=== PATIENT | female | born 1990 | race Caucasian/White ===

== ENCOUNTER 2022-08-21 15:47 | Emergency (ER) | payer OTHER, SELFPAY ==
--- NOTE | ~2022-08-21 | US_ITS ---
EXAMINATION: US OB <=14 wk fetus w TV INDICATION: 5 weeks gest, beta 11K, L sided ABD pain TECHNIQUE: Sonography of the pelvis was performed by transabdominal and transvaginal techniques. COMPARISON: None. RESULT: Uterus: Orientation: Anteverted. 8.8 x 4.2 x 4.3 cm. Myometrium: homogeneous echogenicity. Gestation: - Intrauterine gestational sac: Single present. - Mean Sac Diameter: 1.04 cm, corresponding gestational age 5 week 5 days. - Yolk sac: 0.24 cm . - Embryo: Not seen. -Subgestational hematoma: Absent . Right ovary: 2.7 x 2.7 x 1.2 cm. Normal sonographic appearance with physiologic follicles. . . Left ovary: 4.4 x 4.4 x 2.8 cm. 3.1 cm thin-walled anechoic cyst in the left ovary with an elongate d margin. . Pelvis free fluid: Moderate volume free pelvic fluid, more on the left adnexa, with layering debris. IMPRESSION: Single, intrauterine gestation, of uncertain viability as the pole is not yet identified, likel y due to early gestational age. Estimated Gestational Age: 5 weeks, 5 days by crown rump length. SIMÓN by ultrasound 04/18/2023. Moderate volume complex free pelvic fluid may represent hemorrhage from a ruptured left ovarian cyst. Reviewed, dictated and finalized at location K. IMPRESSION: Single, intrauterine gestation, of uncertain viability as the pole is not yet identified, likely due to early gestational age. Estimated Gestational Age: 5 weeks, 5 days by crown rump length. SIMÓN by ultras ound 04/18/2023. Moderate volume complex free pelvic fluid may represent hemorrhage from a ruptu red left ovarian cyst.
[2022-08-21 15:49] VITALS: BP 133/65; PULSE 92; RESP 20; TEMP 36.8; O2SAT 100
[2022-08-21 16:10] LABS: Basophils Absolute Auto 0.1 K/mm3 (0.0-0.1); Basophils Percent Auto 0.7 % (0.2-1.2); Eosinophils Percent Auto 0.4 % (0-4.4); Hematocrit 37.7 % (37.0-47.0); Immature Granulocyte Absolute 0.01 K/mm3 (0.00-0.031); Immature Granulocyte Percent A 0.1 % (0-0.5); Lymphocytes Absolute Auto 2.16 K/mm3 (0.9-3.2); Lymphocytes Percent Auto 29.7 % (18.3-44.2); Mean Corpuscular HGB Conc 34.5 g/dl (32-36); Mean Corpuscular Hemoglobin 29.6 pg (26-34); Mean Corpuscular Volume 85.9 fl (80-100); Mean Platelet Volume 10.3 fl (7.4-10.4); Monocytes Absolute Auto 0.5 K/mm3 (0.1-0.6); Monocytes Percent Auto 6.6 % (2.6-8.5); Neutrophils Absolute Auto 4.5 K/mm3 (1.3-6.7); Neutrophils Percent Auto 62.5 % (45.5-73.1); Platelet Count Result 290 k/mm3 (150-375); Red Blood Count 4.39 M/mm3 (4.2-5.4); Red Cell Distribution Width 12.3 % (11.5-14.5); White Blood Count 7.3 K/mm3 (4.5-10.0)
[2022-08-21 17:43] VITALS: BP 132/65; PULSE 84; RESP 16; TEMP 37.2; O2SAT 100
--- NOTE | 2022-08-21 18:20 | ED.PREGNANCY ---
HPI - General Chief complaint: Vaginal Bleeding <NGOC Gillis Last Filed: 08/22/22 02:29> Stated complaint: 5 weeks , cramping + L sided pain <NGOC Gillis Last Filed: 08/22/22 02:29> Time Seen by Provider: 08/21/22 17:39 <NGOC Gillis Last Filed: 08/22/22 02:29> Source: patient <NGOC Gillis Last Filed: 08/22/22 02:29> Mode of arrival: ambulatory <NGOC Gillis Last Filed: 08/22/22 02:29> Limitations: no limitations <NGOC Gillis Last Filed: 08/22/22 02:29> History of Present Illness HPI Narrative: Patient is a 32 y/o female who presents to the ED with c/o abdominal cramping. Patient is and currently approx 5 weeks gestation by [facility] Jul 14, 2022. Patient reports having diffuse abdominal cramping over the last 1 week. Today, the pain became more severe and more localized to her left lower quadrant. She called the [facility] and was referred to the ED for further evaluation. Patient will be seeing Rebecca Bauer, the fuse cup expander. Patient denies any vaginal bleeding, leakage of fluid or tissue, fevers, nausea, vomiting, back pain, urinary symptoms. <NGOC Gillis Last Filed: 08/22/22 02:29> Related Data Allergies/Adverse reactions: Allergies Allergy/AdvReac Type Severity Reaction Status Date / Time Penicillins Allergy Unknown RASH Verified 08/21/22 15:52 <NGOC Gillis Last Filed: 08/22/22 02:29> Review of Systems Review of Systems: CONSTITUTIONAL: Denies fever, chills, or sweats. CARDIOVASCULAR: Denies chest pain. RESPIRATORY: Denies dyspnea. GASTROINTESTINAL: See HPI. GENITOURINARY: See HPI. SKIN: Denies rash or itching. MUSCULOSKELETAL: Denies back pain. <Yelitza Olivares PA-C - Last Filed: 08/22/22 02:29> All systems reviewed & are unremarkable except as noted in HPI and below <Yelitza Olivares PA-C - Last Filed: 08/22/22 02:29> PMFSH Past Medical History Medical History: Medical History (Updated 08/22/22 @ 00:01 by Jerald Duarte) Anxiety <Yelitza Olivares PA-C - Last Filed: 08/22/22 02:29> Surgical History Surgical History: Surgical History (Updated 08/21/22 @ 18:21 by Yelitza Olivares PA-C) No pertinent past surgical history <Yelitza Olivares PA-C - Last Filed: 08/22/22 02:29> Social History Social History: Social History (Updated 08/21/22 @ 18:22 by Yelitza Olivares PA-C) Smoking status: Never smoker <Yelitza Olivares PA-C - Last Filed: 08/22/22 02:29> Exam Narrative: GENERAL: Well appearing, well-nourished, non-toxic, in no acute distress. HEAD: Normocephalic, atraumatic. NECK: Supple. No adenopathy, no masses. RESPIRATORY: Airway patent, respirations nonlabored. Clear to auscultation bilaterally, no rales, rhonchi, wheezing. CARDIOVASCULAR: Regular rate and rhythm without murmurs, rubs, or gallops. Peripheral pulses 2+ and equal bilaterally. ABDOMINAL: Soft, mild tenderness throughout left lower quadrant, left pelvic region, no rebound. Nondistended, no hepatosplenomegaly. Normoactive BS. No CVA tenderness. MUSCULOSKELETAL: Moves all extremities. Strength/ROM intact without gross deformities. SKIN: Warm, dry, normal color. No rashes. NEURO: A&O X3. Speech clear. Cranial nerves II-XII grossly intact. Steady gait. No ataxic movements. PSYCHIATRIC: Appropriate mood and affect. Normal interaction. <Yelitza Olivares PA-C - Last Filed: 08/22/22 02:29> Course TRUCK SALES REPRESENTATIVE/PA Physician Supervision This is a was performed by both a physician and an APC. I performed all aspects of the MDM as documented w/ the following additions: This is woman presented with abdominal cramping. Transvaginal ultrasound showed a 5 week fetus. No bleeding no discharge. Case was discussed with OBGYN and she is safe for outpatient follow-up.All questions a
[2022-08-21 18:40] VITALS: BP 121/78; PULSE 81; RESP 16; O2SAT 99
[2022-08-21 18:55] LABS: Appearance Urine Clear (Clear); Bilirubin Urine Negative (Negative); Blood Urine Negative (Negative); Color Urine Yellow (Yellow); Glucose Urine UA Negative (Negative); Ketones Urine Negative (Negative); Leukocyte Esterase Ur Negative LEU/UL (Negative); Nitrate Urine Negative (Negative); Protein Urine Negative (Negative); Specific Grav Ur 1.011 (1.001-1.035); Urobilinogen Urine 0.2 mg/dL (<2.0); pH Urine 6.5 (5.0-9.0)
[2022-08-21 19:14] LABS: Add Urine Microscopic? NO
== END 2022-08-21 19:56 | disposition home or self-care (01) ==
PROVIDERS: Emergency Medicine; Emergency Provider Physician Assistant; PCP Nurse Practitioner Family
DX: O34.81 Maternal care for other abnormalities of pelvic organs, first trimester (principal); N83.202 Unspecified ovarian cyst, left side; R10.32 Left lower quadrant pain; Z3A.01 Less than 8 weeks gestation of pregnancy
CPT/HCPCS: 36415; 76801; 76817; 81003; 84702; 85025; 85461; 86850; 86900; 86901; 99284

== ENCOUNTER 2023-01-28 16:40 | Outpatient (CLI) | payer OTHER, SELFPAY ==
[2023-01-28 17:15] VITALS: BP 113/56; PULSE 77
[2023-01-28 17:30] VITALS: BP 124/69; PULSE 85
[2023-01-28 17:45] VITALS: BP 112/65; PULSE 78
--- NOTE | 2023-01-28 17:49 | PC.NURSE ---
Dr. Seals notified of negative ROM plus. tracing reviewed, discharge order received.
[2023-01-28 17:50] VITALS: BP 113/56; PULSE 77
== END 2023-01-28 17:53 | disposition home or self-care (01) ==
LOC: ANHOBOP 16:45 → ANHOBPP 16:46
PROVIDERS: PCP Nurse Practitioner Family; Visit Provider Obstetrics & Gynecology
DX: O42.90 Premature rupture of membranes, unspecified as to length of time between rupture and onset of labor, unspecified weeks of gestation (principal); Z3A.00 Weeks of gestation of pregnancy not specified
CPT/HCPCS: 59025; 99199

== ENCOUNTER 2023-04-19 07:51 | Outpatient (CLI) | payer OTHER, SELFPAY ==
[2023-04-19 08:18] VITALS: BP 118/77; PULSE 72
[2023-04-19 08:20] LABS: Basophils Percent Auto 0.4 % (0.2-1.2); Eosinophils Absolute Auto 0.1 K/mm3 (0-0.3); Eosinophils Percent Auto 0.6 % (0-4.4); Hematocrit 39.8 % (37.0-47.0); Hemoglobin 13.5 g/dL (12.0-15.0); Immature Granulocyte Absolute 0.03 K/mm3 (0.00-0.031); Immature Granulocyte Percent A 0.3 % (0-0.5); Lymphocytes Absolute Auto 2.35 K/mm3 (0.9-3.2); Lymphocytes Percent Auto 24.4 % (18.3-44.2); Mean Corpuscular HGB Conc 33.9 g/dl (32-36); Mean Corpuscular Hemoglobin 30.3 pg (26-34); Mean Corpuscular Volume 89.2 fl (80-100); Mean Platelet Volume 11.3 fl (7.4-10.4); Monocytes Absolute Auto 0.6 K/mm3 (0.1-0.6); Monocytes Percent Auto 6.2 % (2.6-8.5); Neutrophils Absolute Auto 6.5 K/mm3 (1.3-6.7); Neutrophils Percent Auto 68.1 % (45.5-73.1); Platelet Count Result 262 k/mm3 (150-375); Red Blood Count 4.46 M/mm3 (4.2-5.4); Red Cell Distribution Width 13.1 % (11.5-14.5); White Blood Count 9.6 K/mm3 (4.5-10.0)
[2023-04-19 08:25] LABS: Appearance Urine Clear (Clear); Bilirubin Urine Negative (Negative); Blood Urine Negative (Negative); Color Urine Yellow (Yellow); Glucose Urine UA Negative (Negative); Ketones Urine Negative (Negative); Leukocyte Esterase Ur Negative LEU/UL (NEGATIVE); Nitrate Urine Negative (Negative); Protein Urine Negative (Negative); Specific Grav Ur 1.006 (1.001-1.035); Urobilinogen Urine 0.2 mg/dL (<2.0); pH Urine 6.5 (5.0-9.0)
[2023-04-19 08:30] VITALS: BP 110/64; PULSE 74
[2023-04-19 08:32] LABS: Creatinine Urine 22.5 mg/dL; Total Protein Urine Random 16 mg/dL; Ur Ttl Prot Creatinine Ratio 0.71 mg/mg (0-0.20)
[2023-04-19 08:33] LABS: Alanine Aminotransferase 17 U/L (6-35); Albumin Level 3.7 g/dL (3.5-5.1); Alkaline Phosphatase 160 U/L (38-126); Anion Gap 8 mmol/L (8-16); Aspartate Amino Transferase 24 U/L (14-36); Bilirubin,Total 0.9 mg/dL (0.2-1.3); Blood Urea Nitrogen 10 mg/dL (7-17); Calcium 10.3 mg/dL (8.4-10.2); Carbon Dioxide 23 mmol/L (22-30); Chloride 104 mmol/L (98-107); Estimated Glomerular Filt Rate > 60; Glucose 92 mg/dL (65-110); Potassium 3.7 mmol/L (3.4-5.0); Sodium 135 mmol/L (137-145); Uric Acid 4.7 mg/dL (2.5-7.5)
[2023-04-19 08:34] LABS: Add Urine Microscopic? NO
[2023-04-19 08:45] VITALS: BP 110/69; PULSE 74
[2023-04-19 09:00] VITALS: BP 107/67; PULSE 72
--- NOTE | 2023-04-19 09:05 | PC.NURSE ---
0848- this RN spoke to MD and reported pts arrival to unit. MD made aware of pts complaints of headache, recent blood pressures as well as lab results. Orders received. pt ok to discharge.
[2023-04-19 09:15] VITALS: BP 107/54; PULSE 75
[2023-04-19] MEDS: CAFFEINE 200 MG TABLET PO (09:20)
== END 2023-04-19 09:25 | disposition home or self-care (01) ==
LOC: ANHOBOP 07:55 → ANHOBPP 07:55
PROVIDERS: PCP Nurse Practitioner Family; Visit Provider Obstetrics & Gynecology
DX: O13.9 Gestational [pregnancy-induced] hypertension without significant proteinuria, unspecified trimester (principal); Z3A.00 Weeks of gestation of pregnancy not specified
CPT/HCPCS: 36415; 59025; 80053; 81003; 82570; 84156; 84550; 85025; 87086; 99199; A9270

== ENCOUNTER 2023-04-23 05:03 | Inpatient (IN) | payer OTHER, SELFPAY ==
[2023-04-23] VITALS (205 sets, daily range): BP systolic 92–151; BP diastolic 53–111; PULSE 70–139; TEMP 36.7–38.9; O2SAT 82–100; BMI 31.2
--- NOTE | 2023-04-23 05:03 | LDADM ---
This patient, Brooklyn Benitez, was admitted to Labor/Delivery/Recovery 104 on 04/23/23 at 05:03. Plans for labor, pain management and were discussed with patient. Patient/family oriented to hospital policies and general routines including ID bracelet, bed and alarms, visiting hours, pain management, procedures, bathroom and other care routines, personal items, smoking policy, room service/diet and guest tray routines, infant security routines, and visiting hours. Patient/Family are encouraged to report perceived risks to care and to ask questions if they do not understand what they are told or what they should do. See OBIX for further documentation.
[2023-04-23 06:11] LABS: Basophils Percent Auto 0.4 % (0.2-1.2); Eosinophils Absolute Auto 0.1 K/mm3 (0-0.3); Eosinophils Percent Auto 0.5 % (0-4.4); Hematocrit 39.5 % (37.0-47.0); Hemoglobin 13.3 g/dL (12.0-15.0); Immature Granulocyte Absolute 0.04 K/mm3 (0.00-0.031); Immature Granulocyte Percent A 0.4 % (0-0.5); Lymphocytes Absolute Auto 2.43 K/mm3 (0.9-3.2); Lymphocytes Percent Auto 22.8 % (18.3-44.2); Mean Corpuscular HGB Conc 33.7 g/dl (32-36); Mean Platelet Volume 11.4 fl (7.4-10.4); Monocytes Absolute Auto 0.8 K/mm3 (0.1-0.6); Monocytes Percent Auto 7.1 % (2.6-8.5); Neutrophils Absolute Auto 7.3 K/mm3 (1.3-6.7); Neutrophils Percent Auto 68.8 % (45.5-73.1); Platelet Count Result 253 k/mm3 (150-375); Red Blood Count 4.44 M/mm3 (4.2-5.4); Red Cell Distribution Width 13.2 % (11.5-14.5); White Blood Count 10.7 K/mm3 (4.5-10.0)
[2023-04-23 06:23] LABS: Alanine Aminotransferase 18 U/L (6-35); Albumin Level 3.7 g/dL (3.5-5.1); Alkaline Phosphatase 160 U/L (38-126); Anion Gap 7 mmol/L (8-16); Aspartate Amino Transferase 24 U/L (14-36); Bilirubin,Total 0.7 mg/dL (0.2-1.3); Blood Urea Nitrogen 9 mg/dL (7-17); Calcium 10.2 mg/dL (8.4-10.2); Carbon Dioxide 21 mmol/L (22-30); Chloride 107 mmol/L (98-107); Estimated Glomerular Filt Rate > 60; Glucose 93 mg/dL (65-110); Potassium 3.8 mmol/L (3.4-5.0); Sodium 135 mmol/L (137-145); Uric Acid 4.5 mg/dL (2.5-7.5)
--- NOTE | 2023-04-23 07:17 | WPDOBADMIT ---
Obstetrics - Admit Note Admission Note: record reviewed. No pertinent additions to the history and/or any subsequent changes in the physical findings that are not consistent with the expected course of the were found. Additions to the history and/or subsequent changes in the physical findings follow. SROM at home, meconium fluid,, anticipate vaginal delivery
[2023-04-23] MEDS: OXYTOCIN 30 UNITS/NS 500 ML 30 UNITS/500 ML BAG IV CONT (09:30)
[2023-04-23] MEDS: LACTATED RINGERS 1,000 ML 125 ML IV CONT ×4 (09:30→19:45)
--- NOTE | 2023-04-23 11:01 | WPDANESEPP ---
Anes - Eval Pre Procedure Procedure: Labor Epidural Date/Time: 04/23/23 11:01 Surgeon: Dell Preop Diagnosis: Labor Pain Pre Op Diagnosis: Leaking Fluid Patient Data Age: 32 Gender: F Height: Weight: Last Vital Signs Temp 37.2 C 04/23/23 08:30 Pulse 87 04/23/23 11:00 BP 122/81 04/23/23 11:00 O2 Del Method Room Air 04/23/23 05:47 Allergies Allergy/AdvReac Type Severity Reaction Status Date / Time Penicillins Allergy Unknown RASH Verified 03/24/23 14:30 Home Medications Medication Instructions Recorded Confirmed Type ferrous sulfate 325 mg (65 mg 325 mg PO DAILY 03/24/23 04/23/23 History iron) tablet,delayed release prenat.vits,marcial,yee-fese-atveu 1 tablet PO 03/24/23 History Laboratory Tests 04/23/23 05:45 WBC 10.7 H K/mm3 (4.5-10.0) RBC 4.44 M/mm3 (4.2-5.4) Hgb 13.3 g/dL (12.0-15.0) Hct 39.5 % (37.0-47.0) MCV 89.0 fl (80-100) MCH 30.0 pg (26-34) MCHC 33.7 g/dl (32-36) RDW 13.2 % (11.5-14.5) Plt Count 253 k/mm3 (150-375) MPV 11.4 H fl (7.4-10.4) Immature Gran % (Auto) 0.4 % (0-0.5) Neut % (Auto) 68.8 % (45.5-73.1) Lymph % (Auto) 22.8 % (18.3-44.2) Kemper % (Auto) 7.1 % (2.6-8.5) Eos % (Auto) 0.5 % (0-4.4) Baso % (Auto) 0.4 % (0.2-1.2) Lymph # (Auto) 2.43 K/mm3 (0.9-3.2) Kemper # (Auto) 0.8 H K/mm3 (0.1-0.6) Eos # (Auto) 0.1 K/mm3 (0-0.3) Baso # (Auto) 0.0 K/mm3 (0.0-0.1) Abs Immat Gran (auto) 0.04 H K/mm3 (0.00-0.031) Absolute Neuts (auto) 7.3 H K/mm3 (1.3-6.7) Absolute Nucleated RBC 0.0 K/mm3 (0.0-0.012) Nucleated RBC % 0.0 % (0.0-0.2) Sodium 135 L mmol/L (137-145) Potassium 3.8 mmol/L (3.4-5.0) Chloride 107 mmol/L (98-107) Carbon Dioxide 21 L mmol/L (22-30) Anion Gap 7 L mmol/L (8-16) BUN 9 mg/dL (7-17) Creatinine 0.40 L mg/dL (0.7-1.0) Estim Creat Clear Calc Not Reportable Estimated GFR > 60 (59 - ) Glucose 93 mg/dL (65-110) Uric Acid 4.5 mg/dL (2.5-7.5) Calcium 10.2 mg/dL (8.4-10.2) Total Bilirubin 0.7 mg/dL (0.2-1.3) AST 24 U/L (14-36) ALT 18 U/L (6-35) Alkaline Phosphatase 160 H U/L (38-126) Total Protein 7.0 g/dL (6.3-8.2) Albumin 3.7 g/dL (3.5-5.1) RPR Pending Blood Type O Positive Antibody Screen Negative : gestational age (SIMÓN 04/24/23) HCG: negative Patient hx anesthesia problems: none Family hx anesthesia problems: none Results Review: All pre-operative results and documents have been reviewed as part of the pre-operative evaluation. [facility] Past Medical History Medical History Anxiety Surgical History Surgical History No pertinent past surgical history Social History Social History Smoking status: Never smoker Second hand tobacco smoke exposure: No Substance use: never Lack of Transportation: No Lack of Food: Never True Current Housing: I Have Housing Concerned About Future Housing: No Difficulty Paying Gas/Electric Bills: No Difficulty Paying for Meds: No Currently Unemployed: No Education: Bachelor's Degree Difficulty w/ Childcare or Family Care: No Spiritual care concerns: No Exam Day of Procedure 04/23/23 11:01 Patient weight: normal Heart: regular rate and rhythm Lungs: normal air movement Airway: Mallampati scale class II Neurological: alert and oriented
[2023-04-23 14:39] LABS: Rapid Plasma Reagin Non-Reactive (NonReactive)
[2023-04-23] MEDS: miSOPROStol 200 MCG TABLET 1000 MCG (21:41)
--- NOTE | 2023-04-23 21:53 | PM.OBPRVD ---
OB - Vaginal Delivery Note Procedure Delivery date: 04/23/23 Delivery augmentation: Pitocin Delivery monitor: External FHT and External Uterine Route of delivery: Laceration Description: Perineal - 2nd Degree Delivery repair: vicryl Specimen: Yes Quantitative Blood Loss (ml): 821 Anesthesia type: Epidural Disposition: Floor Complications: Other complications [place] Baby Date of : 04/23/23 Time of : 21:27 Weeks of gestation at delivery: 39 gender: Male Weight (pounds): 8 Weight (ounces): 10 presentation: vertex position: Right Occiput Anterior Placenta delivery description: Spontaneous Cord Vessel Description: 3 Vessels and Clamped/Cut (handed to rn, traffic agent at ) score one minute: 3 score five minutes: 8 Narrative: head slow to deliver, anterior arm and baby easily delivered, clot removal from uterus, blood loss mainly from perineal repair. mother and baby in stable condition
[2023-04-23] MEDS: OXYTOCIN 30 UNITS/NS 500 ML 30 UNITS/500 ML BAG 125 UNITS IV CONT (21:59)
[2023-04-24] VITALS (31 sets, daily range): BP systolic 104–135; BP diastolic 61–97; PULSE 83–117; RESP 16–18; TEMP 36.2–38.9; O2SAT 90–100
[2023-04-24] MEDS: ACETAMINOPHEN 500 MG TABLET 1000 MG PO (00:01)
[2023-04-24] MEDS: GENTAMICIN SULFATE INJ 375 MG in DEXTROSE 5% 100 ML 100 MG IVPB (01:18)
[2023-04-24] MEDS: BENZOCAINE 20% AER SPR (*SP) 56 GM CAN 1 SPRAY TOPICAL (02:00)
[2023-04-24] MEDS: WITCH HAZEL 40 PADS 1 PAD TOPICAL (02:00)
--- NOTE | 2023-04-24 02:27 | OBPPTRN ---
Patient transferred to post room #276 via wheelchair. Support person present. Oriented to unit, room, information board, rooming in, admission packet and security measures. Patient verbalizes understanding.
[2023-04-24] MEDS: IBUPROFEN 600 MG TABLET PO ×2 (04:25→15:58)
[2023-04-24] MEDS: CLINDAMYCIN 900 MG/D5W 50 ML 900 MG/50 ML PIGGYBACK 50 MG IVPB ×3 (04:42→22:30)
[2023-04-24 05:46] LABS: Hematocrit 30.5 % (37.0-47.0); Hemoglobin 10.2 g/dL (12.0-15.0)
[2023-04-24 06:00] LABS: Estimated CRCL calculation 94 ml/min; Estimated Glomerular Filt Rate > 60
--- NOTE | 2023-04-24 08:12 | PM.OBPNVD ---
OB - PN: Subj Subjective Date/time seen: 04/24/23 08:12 Patient comments: no complaints, pain well controlled, incisional pain, tolerating diet and flatus present OB - PN: Obj Data Labs 04/24/23 04:33 04/24/23 04:33 Labs: Laboratory Results - last 24 hr 04/23/23 04/24/23 05:45 04:33 Hgb 10.2 L D Hct 30.5 L Creatinine 0.70 Estim Creat Clear Calc 94 Estimated GFR > 60 RPR Non-reactive OB - PN A/P Plan day: 1 Plan: routine care Comments: No problems, routine care Time Spent With Patient Time: Total time spent is greater than 50% in coordination of care (as documented) at patient's floor/unit and/or counseling patient: Exam Const: General: comfortable, no acute distress and alert Resp: Effort & Inspection: normal respiratory effort Auscultation: no crackles, no rales and no rhonchi Cardio: Rate: regular rate Heart sounds: no click, no murmurs and no rubs GI: Inspection: non-distended GI Palp: No Tenderness to palpation present (GI) Auscultation: normal bowel sounds Other: Incision - CDI Extrem: General: normal to inspection, no pedal edema and no calf tenderness
[2023-04-24] MEDS: MULTIVIT/MIN/PREN/FOL AC/IRON TABLET 1 TAB PO (08:18)
[2023-04-24] MEDS: ACETAMINOPHEN 325 MG TABLET 650 MG PO (08:18)
--- NOTE | 2023-04-24 10:35 | WPDANLDPN2 ---
Anes-Prog Note L&D Date/Time: 04/24/23 10:35 Comfortable throughout: labor and delivery Neuraxial method: epidural Epidural/Spinal procedure site: clean & non-tender Neuro status: Neuro function grossly intact. Cardiovascular status: normal Respiratory status: normal Airway patency: baseline Mental status: baseline Post-Op hydration status: normal Vital Signs: Last Vital Signs Temp 36.2 C L 04/24/23 09:25 Pulse 90 04/24/23 09:25 Resp 18 04/24/23 09:25 BP 111/65 04/24/23 09:25 Pulse Ox 98 04/24/23 09:25 O2 Del Method Room Air 04/23/23 05:47 Pain score (VAS): 06/18 I/O: Intake & Output 04/23/23 04/24/23 04/24/23 23:59 07:59 15:59 Intake Total 2500 Output Total 1321 222 Balance 1179 -222 Post-procedural complaints: none Patient feedback: Patient satisfied with anesthetic care.
--- NOTE | 2023-04-24 11:12 | PC.NURSE ---
[id number] Introductions were made, then consulted with patient to assess needs related to . Mother led the conversation with her?plans to feed?her infant and the?experience so far. Mother works well with her with encouragement and education. Encouraged understanding of the benefits of skin to skin (demonstrating unwrapping and placing upright on her chest), stimulating with massage touch, changing positions to encourage wakefulness, how to watch for early feeding cues, responsive feeding, feeding on demand (aiming for 8-12 times in 24 hours, about every 2-3 hours), milk production, building/maintaining a milk supply, duration of feeding, signs of adequate intake/output and how to record on the feeding sheet. Reviewed positioning and ear, shoulder, hip alignment, supporting the breast to facilitate a deep latch, asymmetrical latch (off-center), leading with the chin with a big, open, wide gape and body close to mother. Infant latched optimally to the right,left,then right again breast in cradle position with exception to the last latch practicing cross cradle. Education given to mother of how to visualize suck/swallow ratios and listen for drinking at the breast. Infant was able to maintain latch without discomfort to mother. Nipple care reviewed with optimal latch and good positioning. Reviewed good handwashing when or touching the breast/nipples to prevent infection. Resources used to facilitate learning were used with the mom and baby guide. Mother voiced understanding of skin to skin, stimulating with massage touch, responsive feedings, talking to and touching to encourage if it has been 2 -2.5 hours since the start of the last , to call if does not latch, or if there is discomfort with . Discussed the rational behind offering food to infant often and frequently. Resources provided for inpatient/outpatient with name written on the communication board and the mom/baby guide. Parents voiced understanding of information, demonstrated learning and will call if there is a request for assistance. Reported to the Primary RN.
[2023-04-24 15:04] LABS: Gentamicin Random 1.4 ug/mL (5.0-12.0)
[2023-04-25] MEDS: IBUPROFEN 600 MG TABLET PO (06:30)
[2023-04-25] MEDS: MULTIVIT/MIN/PREN/FOL AC/IRON TABLET 1 TAB PO (06:30)
[2023-04-25 07:30] VITALS: BP 123/75; PULSE 88; RESP 16; TEMP 36.6; O2SAT 100
--- NOTE | 2023-04-25 08:27 | PM.OBPNVD ---
OB - PN: Subj Subjective Date/time seen: 04/25/23 08:27 Interval history: Doing well PPD#2 No fevers or chills Voiding spontaneously Pain well controlled Normal diet OB - PN: Obj Data Labs 04/24/23 04:33 04/24/23 04:33 Labs: Laboratory Results - last 24 hr 04/24/23 14:29 Random Gentamicin 1.4 L OB - PN A/P Plan day: 2 Plan: discharge home and follow up 6 weeks Time Spent With Patient Time: Total time spent is greater than 50% in coordination of care (as documented) at patient's floor/unit and/or counseling patient: Review of Systems Review of Systems: All systems reviewed & are unremarkable except as noted in HPI and below Exam Const: General: comfortable, no acute distress, alert and awake Resp: Effort & Inspection: normal respiratory effort
--- NOTE | 2023-04-25 08:29 | PM.OBDSVD ---
DS: Admitting Diagnosis Discharge Date 04/25/23 Admitting Diagnosis spontaneous labor DS: Discharge Diagnosis Discharge Diagnosis (1) (spontaneous vaginal delivery): Code(s): O80 - Encounter for full-term uncomplicated delivery Status: Acute OB - DS: Summary OB Procedures : None OB Procedures Intrapartum: Spontaneous Vag Delivery OB Procedures: : None Peripartum Data Laceration Description: Perineal - 2nd Degree Time Spent with Patient Time attestation: Total time spent providing and/or coordinating discharge services: DS: Data Data Completed and Pending Pending studies at discharge: Pending at discharge 04/23/23 21:28 Surgical [PTH] Routine Labs on day of discharge: Labs from last 24 hours 04/24/23 14:29 Random Gentamicin 1.4 L Discharge Plan Discharge Attending physician on discharge: Royal Quiroga Discharging Clinician: Royal Quiroga Patient Disposition: Home, Self-Care Activity: may shower and pelvic rest Diet: as tolerated Patient Instructions: Antibiotic Form Stand Alone Forms: General Discharge Information Follow-up/Referrals: Gricel Sharpe MD [Physician] - 4 Weeks Discharge Medications: Continued ferrous sulfate 325 mg (65 mg iron) Tablet,Delayed Release (Dr/Ec) 325 mg PO DAILY #2 Tablet 1 tablet PO Date of admission: 04/23/23 05:03 Primary Care Provider: Ann-Marie,Corry Camacho Admitting Provider: Gricel Sharpe Attending physician on admission: Gricel Sharpe Condition: Stable
[2023-04-25 14:40] VITALS: BP 114/76
--- NOTE | 2023-04-25 19:08 | PC.NURSE ---
Patient walked off unit with significant other and to private [place] [address]
[2023-04-26 09:35] VITALS: BP 135/86; PULSE 68; RESP 18; TEMP 36.7; O2SAT 100
== END 2023-04-25 19:08 | disposition home or self-care (01) | DRG 807 ==
LOC: ANHLDR 06:38 → ANHOB2 04-25 08:29 → ANHLDR 04-28 09:21 → ANHOB2 04-28 09:21
PROVIDERS: Advanced Practice Midwife; Admitting Provider Obstetrics & Gynecology; PCP Nurse Practitioner Family; Visit Provider Obstetrics & Gynecology
DX: O77.0 Labor and delivery complicated by meconium in amniotic fluid (principal); Z37.0 Single live birth; O70.1 Second degree perineal laceration during delivery; Z3A.39 39 weeks gestation of pregnancy
CPT/HCPCS: 36415; 80053; 80170; 82565; 84550; 85014; 85018; 85025; 86592; 86850; 86900; 86901; 88307; A9270; J1580; J2590; J2795; J7120

== ENCOUNTER 2023-12-26 11:10 | Emergency (ER) | payer OTHER, SELFPAY ==
[2023-12-26 11:14] VITALS: BP 124/74; PULSE 77; RESP 14; TEMP 36.8; O2SAT 99
[2023-12-26 11:20] VITALS: BP 124/74; PULSE 77; RESP 14; TEMP 36.8; O2SAT 99
--- NOTE | 2023-12-26 11:47 | ED.URI ---
HPI - URI/Sore Throat General Chief Complaint: Upper Respiratory Infection Stated Complaint: poss sinus infection/ear Time Seen by Provider: 12/26/23 11:40 Source: patient, RN notes reviewed and old records reviewed Mode of arrival: ambulatory Limitations: no limitations History of Present Illness HPI Narrative: 33-year-old female to [facility] with complaint of right ear and right jaw pain for 1.5 weeks. Patient states she is attempted to treat at home with Tylenol and ibuprofen without relief. Patient reports penicillin allergy. Patient denies seasonal allergies, prescription medications headache, throat pain, difficulty swallowing, GI complaints. Patient able to tolerate fluids by mouth. Respirations even and nonlabored. Patient able to speak in complete sentences without difficulty. Patient in no acute distress. Related Data Home Medications Medication Instructions Recorded Confirmed ferrous sulfate 325 mg (65 mg 325 mg PO DAILY 03/24/23 04/23/23 iron) tablet,delayed release prenat.vits,marcial,nnn-voll-jvhix 1 tablet PO 03/24/23 drospirenone (contraceptive) 4 mg 12/26/23 (28) tablet (Slynd) Allergies Allergy/AdvReac Type Severity Reaction Status Date / Time Penicillins Allergy Unknown RASH Verified 12/26/23 11:19 Review of Systems Review of Systems: All systems reviewed & are unremarkable except as noted in HPI and below Constitutional: Constitutional: Reports no additional constitutional complaints Eyes: Eyes: Reports no additional eye complaints ENT: Reports as per HPI, Reports otalgia ( Right), Reports facial pain ( right jaw) and Reports sinus pressure Cardiovascular: Cardiovascular: Reports no additional cardiovascular complaints, Denies chest pain and Denies dyspnea Respiratory: Respiratory: Reports no additional respiratory complaints, Denies cough and Denies dyspnea Musculoskeletal: Musculoskeletal: Reports no additional musculoskeletal complaints Neurologic: Reports system reviewed and no additional complaints, except as documented Psychiatric: Psychiatric: Reports no additional psychiatric complaints [facility] Past Medical History Medical History Anxiety Surgical History Surgical History No pertinent past surgical history Social History Social History Smoking status: Never smoker Second hand tobacco smoke exposure: No Substance use: never Lack of Transportation: No Lack of Food: Never True Current Housing: I Have Housing Concerned About Future Housing: No Difficulty Paying Gas/Electric Bills: No Difficulty Paying for Meds: No Currently Unemployed: No Education: Bachelor's Degree Difficulty w/ Childcare or Family Care: No Spiritual care concerns: No Comments At the time of my signature, I reviewed and agree with the nursing past medical, surgical, social, and family history. There is no relevant family history pertinent to the patient complaint. Exam Const: General: cooperative, no acute distress, alert, tired appearing, uncomfortable and well nourished Nutritional Appearance: well nourished Orientation/consciousness: patient oriented x3 Limitations: no limitations HENMT: Head: normal to inspection Ears: external ears normal and TM abnormal bulging on the right, dull on the right, erythematous on the right and with fluid behind the TM on the right Face/Nose/Sinus: Normal external nose present, Normal nares present, normal facial exam, No erythema and No edema Face and sinus: normal facial exam, no erythema and no edema Mouth: Yes Normal oral and palatal mucosa present Throat: uvula midline, posterior oropharynx abnormal erythema and postnasal drainage Eyes: General: appearance normal, both eyes and all related structures Neck: Neck: normal visual inspection, full
== END 2023-12-26 12:00 | disposition home or self-care (01) ==
PROVIDERS: Emergency Provider Nurse Practitioner Family
DX: H66.91 Otitis media, unspecified, right ear (principal)
CPT/HCPCS: 99213; G0463